=== PATIENT | male | born 1995 | race American Indian/Alaskan Native ===

== ENCOUNTER 2016-07-06 22:09 | Emergency (ER) | payer BC ==
[2016-07-06 22:58] VITALS: BP 140/79
--- NOTE | 2016-07-06 23:34 | EDM.PDOC ---
ED HPI ENT - General Chief Complaint: ENT Problem Stated Complaint: FEVER,TONSILLITIS Time Seen by Provider: 07/06/16 23:34 Source of Information: Reports: Patient History Limitations: Reports: No limitations - History of Present Illness INITIAL COMMENTS - FREE TEXT/NARRATIVE: few days h/o sore throat hard to sleep - Related Data Allergies/ADRs: Allergies Allergy/AdvReac Type Severity Reaction Status Date / Time Penicillins Allergy Cannot Verified 07/06/16 22:54 Remember Home Meds: Home Meds . [No Known Home Meds] 07/06/16 [History] Past Medical History - Past Health History Medical/Surgical History: Denies Medical/Surgical History Social & Family History - Family History Family Medical History: Noncontributory - Tobacco Use Smoking Status *Q: Never Smoker - Caffeine Use Caffeine Use: Reports: Soda - Recreational Drug Use Recreational Drug Use: No ED ROS ENT - Review of Systems Review Of Systems: ROS reveals no pertinent complaints other than HPI. ED EXAM, ENT - Physical Exam Exam: See Below Exam Limited By: No limitations General Appearance: alert, WD/WN, no apparent distress, other (discomfort) Ears: hearing grossly normal Mouth/Throat: Pharyngeal erythema Head: atraumatic Neck: non-tender, full range of motion Respiratory/Chest: no respiratory distress Cardiovascular: regular rate, rhythm GI/Abdominal: soft, non tender Neurological: alert, oriented, normal cognition, normal gait, no motor/sensory deficits Psychiatric: normal affect, normal mood Skin: Warm, Dry Lymphatic: no adenopathy Course - Vital Signs Last Recorded V/S: Last Vital Signs Temp 37.1 C 07/06/16 22:55 Pulse 90 07/06/16 22:55 Resp 16 07/06/16 22:55 BP 140/79 07/06/16 22:55 Pulse Ox 98 07/06/16 22:55 - Orders/Labs/Meds Orders: Active Orders 24 hr Category Date Time Status CULTURE STREP A CONFIRMATION [] Stat Lab 07/06/16 22:58 Results STREP SCRN A RAPID W CULT CONF [] Stat Lab 07/06/16 22:58 Results Azithromycin [Zithromax] Med 07/06/16 23:38 Once 500 mg PO ONETIME ONE - Re-Assessments/Exams Free Text/Narrative Re-Assessment/Exam: 07/06/16 23:38 results discussed with Pt. Departure - Departure Time of Disposition: 23:38 Disposition: Home, Self-Care 01 Condition: good Clinical Impression: Tonsillitis Instructions: Tonsillitis, [id number] Forms: ED Department Discharge Additional Instructions: 1) avoid scratchy foods next 48 hours 2) have soups, jello, baby foods 3) take tylenol or motrin for fever 4) recheck as needed rx given: z-julieta - My Orders Last 24 Hours: My Active Orders 07/06/16 22:58 CULTURE STREP A CONFIRMATION [RM] Stat STREP SCRN A RAPID W CULT CONF [RM] Stat 07/06/16 23:38 Azithromycin [Zithromax] 500 mg PO ONETIME ONE - Assessment/Plan Last 24 Hours: My Active Orders 07/06/16 22:58 CULTURE STREP A CONFIRMATION [RM] Stat STREP SCRN A RAPID W CULT CONF [RM] Stat 07/06/16 23:38 Azithromycin [Zithromax] 500 mg PO ONETIME ONE
[2016-07-06] MEDS ORDERED: Azithromycin 250 MG Tab PO ONE (23:38)
== END 2016-07-06 23:46 | disposition home or self-care (01) ==
LOC: DL.ED 22:09
DX: J03.90 Acute tonsillitis, unspecified (principal); Z88.0 Allergy status to penicillin
CPT/HCPCS: 87081; 87430; 99283; A9270

== ENCOUNTER 2016-08-14 11:04 | Emergency (ER) | payer BC ==
[2016-08-14 11:16] VITALS: BP 134/91
[2016-08-14] MEDS ORDERED: predniSONE 20 MG Tab PO ONE (11:25)
--- NOTE | 2016-08-14 11:34 | EDM.PDOC ---
ED HPI GENERAL MEDICAL PROBLEM - General Chief Complaint: Allergic Reaction Stated Complaint: [id number] ALLERGIC REACTION Time Seen by Provider: 08/14/16 11:29 Source of Information: Reports: Patient History Limitations: Reports: No Limitations - History of Present Illness INITIAL COMMENTS - FREE TEXT/NARRATIVE: states his girlfriend cooked crab and he thinks he is allergic b/c he developed red area on the right side of the neck, right lateral abd and right elbow. The areas are tender red and swollen. does not report any trauma Onset: Gradual Location: Reports: Neck Quality: Reports: Burning Severity: Mild Improves with: Reports: None Worsens with: Reports: None Associated Symptoms: Reports: No Other Symptoms Treatments ST[employer] SAW[employer]ER: Denies: Acetaminophen - Related Data Allergies Allergy/AdvReac Type Severity Reaction Status Date / Time Penicillins Allergy Cannot Verified 08/14/16 11:07 Remember Home Meds: Home Meds . [No Known Home Meds] 07/06/16 [History] Past Medical History - Past Health History Medical/Surgical History: Denies Medical/Surgical History Cardiovascular History: Reports: Heart Murmur Social & Family History - Family History Family Medical History: Noncontributory - Tobacco Use Smoking Status *Q: Never Smoker Second Hand Smoke Exposure: No - Caffeine Use Caffeine Use: Reports: None - Recreational Drug Use Recreational Drug Use: No ED ROS ALLERGIC REACTION - Review of Systems Review Of Systems: See Below Musculoskeletal: Reports: No Symptoms Skin: Reports: Erythema Neurological: Reports: No Symptoms ED EXAM GENERAL NO PERIP PULSE - Physical Exam Exam: See Below Exam Limited By: No Limitations General Appearance: Alert, WD/WN, No Apparent Distress Eye Exam: Bilateral Eye: PERRL Ears: Normal External Exam, Normal Canal, Hearing Grossly Normal, Normal TMs Nose: Normal Inspection, Normal Mucosa, No Blood Throat/Mouth: Normal Inspection, Normal Lips, Normal Teeth, Normal Gums, Normal Oropharynx, Normal Voice, No Airway Compromise Head: Atraumatic, Normocephalic Neck: Normal Inspection, Supple, Non-Tender, Full Range of Motion Respiratory/Chest: No Respiratory Distress, Lungs Clear, Normal Breath Sounds, No Accessory Muscle Use, Chest Non-Tender Cardiovascular: Normal Peripheral Pulses, Regular Rate, Rhythm, No Edema, No Gallop, No JVD, No Murmur, No Rub Extremities: Normal Inspection, Normal Range of Motion, Non-Tender, Normal Capillary Refill, No Pedal Edema Neurological: Alert, Oriented, CN II-XII Intact, Normal Cognition, Normal Gait, Normal Reflexes, No Motor/Sensory Deficits Psychiatric: Normal Affect, Normal Mood Skin Exam: Warm, Dry, Intact, Erythema (area to the right posterior neck / right elbow and right mid lateral abd that are red/ warm and varing in size- ), Increased Warmth Course - Vital Signs Last Recorded V/S: Last Vital Signs Temp 96.6 F 08/14/16 11:15 Pulse 74 08/14/16 11:15 Resp 18 08/14/16 11:15 BP 134/91 H 08/14/16 11:15 Pulse Ox 96 08/14/16 11:15 - Orders/Labs/Meds Meds: Medications Discontinued Medications Generic Name Dose Route Start Last Admin Trade Name Jessica PRN Reason Stop Dose Admin Cephalexin 500 mg 08/14/16 11:43 08/14/16 11:56 Keflex PO 08/14/16 11:44 500 mg ONETIME ONE Administration Cephalexin Confirm 08/14/16 11:52 08/14/16 11:56 Keflex Administered 08/14/16 11:53 Not Given Dose 1,500 mg .ROUTE .STK-MED ONE Prednisone 20 mg 08/14/16 11:25 08/14/16 11:36 Prednisone PO 08/14/16 11:26 20 mg ONETIME ONE Administration - Re-Assessments/Exams Free Text/Narrative Re-Assessment/Exam: 08/14/16 11:38 Patient given predisone and keflex and then told to f/u Departure - Departure Time of Disposition: 11:39 Disposition: Home, Self-Care 01 Condition: good Clinical Impression: Cellulitis Qualifiers: Site of cellulitis: neck Qualified Code(s): L03.221 - Cellulitis of neck Allergic reaction Qualifiers: Encounter type: initial encounter Qualified Code(s): T78.40XA - Allergy, unspecified, initial encounter - Discharge Information Instructions: Food Allergy, Cellulitis, Adult, [id number] Referrals: PCP,None [Primary Care Provider] - Forms: ED Department Discharge
[2016-08-14] MEDS ORDERED: Cephalexin 500 MG Cap PO ONE ×2 (11:43→11:52)
[2016-08-14] MEDS ORDERED: Cephalexin 500 MG Cap ONE (11:52)
== END 2016-08-14 11:50 | disposition home or self-care (01) ==
LOC: DL.ED 11:04
DX: L03.221 Cellulitis of neck (principal); T78.40XA Allergy, unspecified, initial encounter; Z88.0 Allergy status to penicillin
CPT/HCPCS: 99283; A9270

== ENCOUNTER 2016-08-22 17:42 | Emergency (ER) | payer BC ==
[2016-08-22 17:55] VITALS: BP 126/71
--- NOTE | 2016-08-22 19:23 | EDM.PDOC ---
ED HPI GENERAL MEDICAL PROBLEM - General Chief Complaint: ENT Problem Stated Complaint: THROAT PAINS, [id number] Time Seen by Provider: 08/22/16 19:10 Source of Information: Reports: Patient History Limitations: Reports: No Limitations - History of Present Illness INITIAL COMMENTS - FREE TEXT/NARRATIVE: This 20 yo male patient reports to the ED with a 1 day history of a sore throat. The patient also reports his right ear has been hurting and his left ear feels "plugged". The patient has not been seen in the clinic. Onset: Sudden Onset Date: 08/21/16 Duration: Constant Location: Reports: Head, Neck Quality: Reports: Ache, Dull Severity: Moderate Improves with: Reports: None Worsens with: Reports: None Associated Symptoms: Reports: No Other Symptoms Throat Pain Score (Numeric/FACES): 9 - Related Data Allergies Allergy/AdvReac Type Severity Reaction Status Date / Time Penicillins Allergy Cannot Verified 08/22/16 17:51 Remember Home Meds: Home Meds . [No Known Home Meds] 07/06/16 [History] Past Medical History - Past Health History Medical/Surgical History: Denies Medical/Surgical History Cardiovascular History: Reports: Heart Murmur Social & Family History - Family History Family Medical History: Noncontributory - Tobacco Use Smoking Status *Q: Never Smoker Second Hand Smoke Exposure: No - Caffeine Use Caffeine Use: Reports: None - Recreational Drug Use Recreational Drug Use: No ED ROS ENT - Review of Systems Review Of Systems: ROS reveals no pertinent complaints other than HPI. ED EXAM, ENT - Physical Exam Exam: See Below Exam Limited By: No Limitations General Appearance: Alert, WD/WN, Moderate Distress Eye Exam: Bilateral Eye: EOMI, Normal Inspection, PERRL Ears: TM Bulging (left), TM Erythema (left) Nose: Normal Inspection, Normal Mucousa, No Blood Mouth/Throat: Normal Gums, Normal Lips, Normal Teeth, Tonsillar Erythema, Tonsillar Exudates Head: Atraumatic, Normocephalic Neck: Normal Inspection, Supple, Non-Tender, Full Range of Motion. No: Lymphadenopathy (L), Lymphadenopathy (R) Respiratory/Chest: No Respiratory Distress, Lungs Clear, Normal Breath Sounds, No Accessory Muscle Use, Chest Non-Tender Cardiovascular: Normal Peripheral Pulses, Regular Rate, Rhythm, No Edema, No Gallop, No JVD, No Murmur, No Rub GI/Abdominal: Normal Bowel Sounds, Soft, Non-Tender, No Organomegaly, No Distention, No Abnormal Bruit, No Mass (Male) Exam: Deferred Rectal (Males) Exam: Deferred Back: Normal Inspection, Full Range of Motion Extremities: Normal Inspection, Normal Range of Motion, Non-Tender, No Pedal Edema, Normal Capillary Refill Neurological: Alert, Oriented, CN II-XII Intact, Normal Cognition, Normal Gait, Normal Reflexes, No Motor/Sensory Deficits Psychiatric: Normal Affect, Normal Mood Skin: Warm, Dry, Intact, Normal Color, No Rash Lymphatic: No Adenopathy Course - Vital Signs Last Recorded V/S: Last Vital Signs Temp 36.4 C 08/22/16 17:53 Pulse 100 08/22/16 17:53 Resp 18 08/22/16 17:53 BP 126/71 08/22/16 17:53 Pulse Ox 100 08/22/16 17:53 - Orders/Labs/Meds Orders: Active Orders 24 hr Category Date Time Status CULTURE STREP A CONFIRMATION [] Stat Lab 08/22/16 17:55 Results STREP SCRN A RAPID W CULT CONF [RM] Stat Lab 08/22/16 17:55 Results Departure - Departure Time of Disposition: 19:20 Disposition: Home, Self-Care 01 Condition: fair Clinical Impression: Otitis media Qualifiers: Otitis media type: serous Chronicity: acute Laterality: left Recurrence: not specified as recurrent Qualified Code(s): H65.02 - Acute serous otitis media, left ear Pharyngitis Qualifiers: Pharyngitis/tonsillitis etiology: unspecified etiology Qualified Code(s): J02.9 - Acute pharyngitis, unspecified - Discharge Information Instructions: Pharyngitis, Otitis Media, Adult Forms: ED Department Discharge Care Plan Goals: The patient was advised of the examination and lab results during the visit. The patient was discharged with a script for Keflex (500 mg) to take 1 by mouth 2 times per day for 10 days. If the patient has any additional symptoms or concerns, the patient should follow-up with his primary care facility or return to the emergency department.
== END 2016-08-22 19:27 | disposition home or self-care (01) ==
LOC: DL.ED 17:42
DX: H65.02 Acute serous otitis media, left ear (principal); J02.9 Acute pharyngitis, unspecified; Z88.0 Allergy status to penicillin
CPT/HCPCS: 87081; 87430; 99283

== ENCOUNTER 2016-08-26 21:07 | Emergency (ER) | payer BC ==
[2016-08-26 21:15] VITALS: BP 135/77
--- NOTE | 2016-08-26 21:32 | EDM.PDOC ---
ED HPI GENERAL MEDICAL PROBLEM - General Chief Complaint: ENT Problem Stated Complaint: THROAT AND EAR, [id number] Time Seen by Provider: 08/26/16 21:21 Source of Information: Reports: Patient History Limitations: Reports: No Limitations - History of Present Illness INITIAL COMMENTS - FREE TEXT/NARRATIVE: This 20 yo male patient reports to the ED with continued pain in his throat and plugged ears. The patient was seen in the ED 4 days ago for similar symptoms and started on Keflex. The patient's mother reports the patient has had fevers of up to 104. The patient has been taking the Keflex as prescribed along with Tylenol and ibuprofen. The patient did not get into the clinic to be seen as the clinic could not get him in until Sunday. The patient mother reports he has not been feeling well since . The patient was started on Keflex around also. Onset: Gradual Onset Date: 08/21/16 Duration: Constant, Getting Worse Location: Reports: Face, Neck Quality: Reports: Ache, Sharp Severity: Severe Improves with: Reports: Medication Worsens with: Reports: None Associated Symptoms: Reports: No Other Symptoms Treatments [employer]BER: Reports: Acetaminophen, NSAIDS, Other Medication(s) Bilateral Ear Pain Score (Numeric/FACES): 5 Throat Pain Score (Numeric/FACES): 8 - Related Data Allergies Allergy/AdvReac Type Severity Reaction Status Date / Time Penicillins Allergy Cannot Verified 08/26/16 21:20 Remember Home Meds: Home Meds Cephalexin [Keflex] 1 tab PO BID 08/26/16 [History] Past Medical History - Past Health History Medical/Surgical History: Denies Medical/Surgical History Cardiovascular History: Reports: Heart Murmur Social & Family History - Family History Family Medical History: Noncontributory - Tobacco Use Smoking Status *Q: Never Smoker Second Hand Smoke Exposure: No - Caffeine Use Caffeine Use: Reports: None - Recreational Drug Use Recreational Drug Use: No ED ROS ENT - Review of Systems Review Of Systems: ROS reveals no pertinent complaints other than HPI. ED EXAM, ENT - Physical Exam Exam: See Below Exam Limited By: No Limitations General Appearance: Alert, WD/WN, Moderate Distress Eye Exam: Bilateral Eye: EOMI, Normal Inspection, PERRL Ears: Normal External Exam, Normal Canal, Hearing Grossly Normal, Normal TMs Nose: Normal Inspection, Normal Mucousa, No Blood Mouth/Throat: Normal Inspection, Normal Gums, Normal Lips, Normal Teeth, Tonsillar Exudates, Tonsillar Swelling Head: Atraumatic, Normocephalic Neck: Full Range of Motion, Lymphadenopathy (L), Lymphadenopathy (R), Tender Lateral Respiratory/Chest: No Respiratory Distress, Lungs Clear, Normal Breath Sounds, No Accessory Muscle Use, Chest Non-Tender Cardiovascular: Normal Peripheral Pulses, Regular Rate, Rhythm, No Edema, No Gallop, No JVD, No Murmur, No Rub GI/Abdominal: Normal Bowel Sounds, Soft, Non-Tender, No Organomegaly, No Distention, No Abnormal Bruit, No Mass (Male) Exam: Deferred Rectal (Males) Exam: Deferred Back: Normal Inspection, Full Range of Motion Extremities: Normal Inspection, Normal Range of Motion, Non-Tender, No Pedal Edema, Normal Capillary Refill Neurological: Alert, Oriented, CN II-XII Intact, Normal Cognition, Normal Gait, Normal Reflexes, No Motor/Sensory Deficits Psychiatric: Normal Affect, Normal Mood Skin: Warm, Dry, Intact, Normal Color, No Rash Lymphatic: No Adenopathy Course - Vital Signs Last Recorded V/S: Last Vital Signs Temp 37.4 C 08/26/16 21:14 Pulse 113 H 08/26/16 21:14 Resp 20 08/26/16 21:14 BP 135/77 08/26/16 21:14 Pulse Ox 97 08/26/16 21:14 - Orders/Labs/Meds Labs: Laboratory Tests 08/26/16 08/26/16 Range/Units 21:40 21:40 WBC 13.4 H (5.0-10.0) 10^3/uL RBC 4.49 L (4.6-6.2) 10^6/uL Hgb 13.6 L (14.0-18.0) g/dL Hct 39.1 L (40.0-54.0) % MCV 87.1 (80-100) fL MCH 30.3 (27.0-34.0) pg MCHC 34.8 (33.0-35.0) g/dL Plt Count 238 (150-450) 10^3/uL Neut % (Auto) 71.9 (42.2-75.2) % Lymph % (Auto) 13.1 L (20.5-50.1) % [place] % (Auto) 14.5 H (2-8) % Eos % (Auto) 0.4 L (1.0-3.0) % Baso % (Auto) 0.1 (0.0-1.0) % Monoscreen Negative Meds: Medications Discontinued Medications Generic Name Dose Route Start Last Admin Trade Name Jessica PRN Reason Stop Dose Admin Ibuprofen 800 mg 08/26/16 22:10 Motrin PO 08/26/16 22:11 ONETIME ONE Methylprednisolone Sodium Succinate 125 mg 08/26/16 22:10 Solu-Medrol IM 08/26/16 22:11 ONETIME ONE Departure - Departure Time of Disposition: 22:12 Disposition: Home, Self-Care 01 Condition: fair Clinical Impression: Pharyngitis Qualifiers: Pharyngitis/tonsillitis etiology: unspecified etiology Qualified Code(s): J02.9 - Acute pharyngitis, unspecified - Discharge Information Instructions: Pharyngitis, Vdxu-[id number] Forms: ED Department Discharge Care Plan Goals: The patient and his mother were advised of the examination and lab results during the visit. The patient was given an injection of SoluMedrol (125 mg) and an oral dose of ibuprofen (800 mg) while in the ED. The patient was discharged with a script for Prednisone (20 mg) #10 to take 2 by mouth daily for 5 days. The patient should follow-up with his primary care facility for a possible ENT referral. If the patient has any additional symptoms or concerns, the patient should visit his primary care facility or return to the emergency department.
[2016-08-26] MEDS ORDERED: methylPREDNISolone Sodium Succinate 125 MG/2 ML SDV IM ONE (22:10)
[2016-08-26] MEDS ORDERED: Ibuprofen 800 MG Tab PO ONE (22:10)
== END 2016-08-26 22:24 | disposition home or self-care (01) ==
LOC: DL.ED 21:07
DX: J02.9 Acute pharyngitis, unspecified (principal); Z88.1 Allergy status to other antibiotic agents
CPT/HCPCS: 36415; 85025; 86308; 96372; 99283; A9270; J2930

== ENCOUNTER 2016-10-22 13:45 | Emergency (ER) | payer BC ==
[2016-10-22 13:52] VITALS: BP 139/84
[2016-10-22] MEDS ORDERED: Sodium Chloride 0.9% 10 ML Syringe FLUSH PRN (14:02)
[2016-10-22] MEDS ORDERED: cefTRIAXone 2 GM in Sodium Chloride 0.9% 100 ML IV ONE (14:03)
[2016-10-22] MEDS ORDERED: Dexamethasone 4 MG/ML SDV IVPUSH ONE (14:03)
[2016-10-22] MEDS ORDERED: Sodium Chloride 0.9% 1,000 ML IV ONE (14:03)
--- NOTE | 2016-10-22 14:58 | EDM.PDOC ---
Scribed by Radha Bravo 10/22/16 [id number] for Harmeet Barrientos MD ED HPI GENERAL MEDICAL PROBLEM - General Chief Complaint: ENT Problem Stated Complaint: [id number] TONSILS SWELLING Time Seen by Provider: 10/22/16 13:48 Source of Information: Reports: Patient, RN, RN Notes Reviewed History Limitations: Reports: No Limitations - History of Present Illness INITIAL COMMENTS - FREE TEXT/NARRATIVE: Patient complaining of sore throat x3 days. [place] feverish but didn't measure temperature. Mild frontal headache and nausea. Denies cough or rash. Location: Reports: Other (throat) Quality: Reports: Ache Severity: Severe Improves with: Reports: None Worsens with: Reports: None Associated Symptoms: Reports: No Other Symptoms Throat Pain Score (Numeric/FACES): 8 - Related Data Allergies Allergy/AdvReac Type Severity Reaction Status Date / Time Penicillins Allergy Cannot Verified 10/22/16 13:49 Remember Home Meds: Home Meds . [No Known Home Meds] 10/22/16 [History] Past Medical History - Past Health History Medical/Surgical History: Denies Medical/Surgical History HEENT History: Reports: Other (See Below) (recurrent strep throat) Cardiovascular History: Reports: Heart Murmur Social & Family History - Family History Family Medical History: Noncontributory - Tobacco Use Smoking Status *Q: Never Smoker Second Hand Smoke Exposure: No - Caffeine Use Caffeine Use: Reports: None - Recreational Drug Use Recreational Drug Use: No ED ROS ENT - Review of Systems Review Of Systems: ROS reveals no pertinent complaints other than HPI. ED EXAM, ENT - Physical Exam Exam: See Below Exam Limited By: No Limitations General Appearance: Alert, WD/WN, No Apparent Distress Eye Exam: Bilateral Eye: Normal Inspection Ears: Normal External Exam, Normal Canal, Hearing Grossly Normal, Normal TMs Nose: Normal Inspection, Normal Mucousa, No Blood Mouth/Throat: Other (pharyngeal erythema with exudates on tonsils. Right tonsil enlarged with peritonsillar abscess.) Head: Atraumatic, Normocephalic Neck: Full Range of Motion Respiratory/Chest: No Respiratory Distress, Lungs Clear, Normal Breath Sounds, No Accessory Muscle Use, Chest Non-Tender Cardiovascular: Normal Peripheral Pulses, Regular Rate, Rhythm, No Edema, No Gallop, No JVD, No Murmur, No Rub GI/Abdominal: Normal Bowel Sounds, Soft, Non-Tender, No Organomegaly, No Distention, No Abnormal Bruit, No Mass (Male) Exam: Deferred Rectal (Males) Exam: Deferred Back: Normal Inspection, Full Range of Motion Extremities: Normal Inspection, Normal Range of Motion, Non-Tender, No Pedal Edema, Normal Capillary Refill Neurological: Alert, Oriented, CN II-XII Intact, Normal Cognition, Normal Gait, Normal Reflexes, No Motor/Sensory Deficits Psychiatric: Normal Affect, Normal Mood Skin: Warm, Dry, Intact, Normal Color, No Rash Course - Vital Signs Last Recorded V/S: Last Vital Signs Temp 37.5 C 10/22/16 13:49 Pulse 130 H 10/22/16 13:49 Resp 16 10/22/16 13:49 BP 139/84 10/22/16 13:49 Pulse Ox 96 10/22/16 13:49 - Orders/Labs/Meds Orders: Active Orders 24 hr Category Date Time Status Peripheral IV Care [RC] . DIRECTED Care 10/22/16 14:02 Active Sodium Chloride 0.9% [Normal Saline] 1,000 ml Med 10/22/16 14:03 Active IV .BOLUS Sodium Chloride 0.9% [Saline Flush] Med 10/22/16 14:02 Active 10 ml FLUSH ASDIRECTED PRN Peripheral IV Insertion Adult [OM.PC] Stat Oth 10/22/16 14:02 Ordered Medication Orders Sodium Chloride (Normal Saline) 1,000 mls @ 999 mls/hr IV .BOLUS ONE Stop: 10/22/16 15:03 Last Admin: 10/22/16 14:24 Dose: 999 mls/hr Sodium Chloride (Saline Flush) 10 ml FLUSH ASDIRECTED PRN PRN Reason: Keep Vein Open Last Admin: 10/22/16 14:24 Dose: 10 ml Labs: Laboratory Tests 10/22/16 10/22/16 Range/Units 14:08 14:08 WBC 12.5 H (5.0-10.0) 10^3/uL RBC 4.83 (4.6-6.2) 10^6/uL Hgb 14.3 (14.0-18.0) g/dL Hct 42.3 (40.0-54.0) % MCV 87.6 (80-100) fL MCH 29.6 (27.0-34.0) pg MCHC 33.8 (33.0-35.0) g/dL Plt Count 209 (150-450) 10^3/uL Neut % (Auto) 69.8 (42.2-75.2) % Lymph % (Auto) 13.1 L (20.5-50.1) % [place] % (Auto) 16.7 H (2-8) % Eos % (Auto) 0.2 L (1.0-3.0) % Baso % (Auto) 0.2 (0.0-1.0) % C-Reactive Protein 14.8 H (0.0-1.3) mg/dL Rapid strep: Positive Meds: Medications Generic Name Dose Route Start Last Admin Trade Name Freq PRN Reason Stop Dose Admin Sodium Chloride 1,000 mls @ 999 mls/hr 10/22/16 14:03 10/22/16 14:24 Normal Saline IV 10/22/16 15:03 999 mls/hr .BOLUS ONE Administration Sodium Chloride 10 ml 10/22/16 14:02 10/22/16 14:24 Saline Flush FLUSH 10 ml ASDIRECTED PRN Administration Keep Vein Open Discontinued Medications Generic Name Dose Route Start Last Admin Trade Name Freq PRN Reason Stop Dose Admin Dexamethasone 20 mg 10/22/16 14:03 10/22/16 14:20 Dexamethasone IVPUSH 10/22/16 14:04 20 mg ONETIME ONE Administration Ceftriaxone Sodium 2 gm/ 100 mls @ 200 mls/hr 10/22/16 14:03 10/22/16 14:43 Sodium Chloride IV 10/22/16 14:32 200 mls/hr ONETIME ONE Administration Departure - Departure Time of Disposition: 14:55 Disposition: Home, Self-Care 01 Condition: Fair Clinical Impression: Strep pharyngitis, Peritonsillar abscess - Discharge Information Instructions: Strep Throat, [id number], Peritonsillar Abscess, [id number] Forms: ED Department Discharge Additional Instructions: RX: Prednisone 20mg. RX: Clindamycin 300mg. Gargle with salt water frequently until improved. Follow up with ear, nose and throat specialist or your primary doctor to ENT specialist this week. Return to ER if worse at any time. - My Orders Last 24 Hours: My Active Orders 10/22/16 14:02 Peripheral IV Care [RC] . DIRECTED Sodium Chloride 0.9% [Saline Flush] 10 ml FLUSH ASDIRECTED PRN Peripheral IV Insertion Adult [OM.PC] Stat 10/22/16 14:03 Sodium Chloride 0.9% [Normal Saline] 1,000 ml IV .BOLUS - Assessment/Plan Last 24 Hours: My Active Orders 10/22/16 14:02 Peripheral IV Care [RC] . DIRECTED Sodium Chloride 0.9% [Saline Flush] 10 ml FLUSH ASDIRECTED PRN Peripheral IV Insertion Adult [OM.PC] Stat 10/22/16 14:03 Sodium Chloride 0.9% [Normal Saline] 1,000 ml IV .BOLUS I have read and agree with the documentation that has been completed regarding this visit. By signing this record, I attest that the documentation was completed in my physical presence and is an accurate record of the encounter.
== END 2016-10-22 15:45 | disposition home or self-care (01) ==
LOC: DL.ED 13:45
DX: J02.0 Streptococcal pharyngitis (principal); J36 Peritonsillar abscess; Z88.0 Allergy status to penicillin
CPT/HCPCS: 36415; 85025; 86140; 87430; 96365; 96375; 99284; J0696; J1100; J7030; J7050

== ENCOUNTER 2016-12-20 21:13 | Emergency (ER) | payer BC ==
[2016-12-20 21:29] VITALS: BP 130/70
[2016-12-20] MEDS ORDERED: Azithromycin 250 MG Tab PO ONE (22:29)
--- NOTE | 2016-12-20 22:51 | EDM.PDOC ---
ED HPI GENERAL MEDICAL PROBLEM - General Chief Complaint: ENT Problem Stated Complaint: TONSILE SWOLLEN,FEVER, [id number] Time Seen by Provider: 12/20/16 21:45 Source of Information: Reports: Patient History Limitations: Reports: No Limitations - History of Present Illness INITIAL COMMENTS - FREE TEXT/NARRATIVE: C/o sore throat and fever for past 3 days. Tonight fever 100.4. Has been taking Ibuprofen with minimal improvement. Hx recurrent strep infections. Has referral appointment with Dr. Bell on 01/03. Throat Pain Score (Numeric/FACES): 7 - Related Data Allergies Allergy/AdvReac Type Severity Reaction Status Date / Time Penicillins Allergy Cannot Verified 12/20/16 21:25 Remember shellfish derived Allergy Hives Verified 12/20/16 21:25 Home Meds: Home Meds . [No Known Home Meds] 10/22/16 [History] Past Medical History - Past Health History Medical/Surgical History: Denies Medical/Surgical History HEENT History: Reports: Other (See Below) Other HEENT History: frequent tonsillitis Cardiovascular History: Reports: Heart Murmur Social & Family History - Family History Family Medical History: Noncontributory - Tobacco Use Smoking Status *Q: Unknown Ever Smoked Second Hand Smoke Exposure: No - Caffeine Use Caffeine Use: Reports: Energy Drinks - Recreational Drug Use Recreational Drug Use: No ED ROS ENT - Review of Systems Review Of Systems: See Below Constitutional: Reports: Fever, Chills HEENT: Reports: Throat Pain. Denies: Ear Pain, Sinus Problem Respiratory: Reports: No Symptoms Cardiovascular: Reports: No Symptoms GI/Abdominal: Reports: No Symptoms Musculoskeletal: Reports: No Symptoms Skin: Reports: No Symptoms Neurological: Reports: No Symptoms ED EXAM, ENT - Physical Exam Exam: See Below Exam Limited By: No Limitations General Appearance: Alert, Mild Distress Eye Exam: Bilateral Eye: EOMI Ears: Normal External Exam Nose: Normal Inspection Mouth/Throat: Pharyngeal Erythema, Tonsillar Erythema, Tonsillar Exudates, Tonsillar Swelling Head: Atraumatic, Normocephalic Neck: Full Range of Motion, Lymphadenopathy (L), Lymphadenopathy (R) Respiratory/Chest: No Respiratory Distress, Lungs Clear, Normal Breath Sounds Cardiovascular: Normal Peripheral Pulses, Regular Rate, Rhythm GI/Abdominal: Normal Bowel Sounds, Soft, Non-Tender Neurological: Alert, Oriented, Normal Cognition Psychiatric: Normal Affect, Normal Mood Skin: Warm, Dry, Intact, Normal Color Course - Vital Signs Last Recorded V/S: Last Vital Signs Temp 99.5 F 12/20/16 21:28 Pulse 101 H 12/20/16 21:28 Resp 17 12/20/16 21:28 BP 130/70 12/20/16 21:28 Pulse Ox 100 12/20/16 21:28 - Orders/Labs/Meds Orders: Active Orders 24 hr Category Date Time Status CULTURE STREP A CONFIRMATION [RM] Stat Lab 12/20/16 21:24 Results CULTURE WOUND [RM] Stat Lab 12/20/16 22:45 Received STREP SCRN A RAPID W CULT CONF [RM] Stat Lab 12/20/16 21:24 Results Meds: Medications Discontinued Medications Generic Name Dose Route Start Last Admin Trade Name Jessica PRN Reason Stop Dose Admin Azithromycin 500 mg 12/20/16 22:29 12/20/16 22:48 Zithromax PO 12/20/16 22:30 500 mg ONETIME ONE Administration Departure - Departure Time of Disposition: 22:48 Disposition: Home, Self-Care 01 Condition: Fair Clinical Impression: Acute recurrent tonsillitis, unspecified - Discharge Information Instructions: Peritonsillar Abscess, Onco-[id number] Forms: ED Department Discharge Additional Instructions: azithromiycin 250mg one daily x 4 days alternate tylenol 650mg with ibuprofen 800mg every 4 hours as needed for pain increase fluid intake - My Orders Last 24 Hours: My Active Orders 12/20/16 21:24 CULTURE STREP A CONFIRMATION [RM] Stat STREP SCRN A RAPID W CULT CONF [RM] Stat 12/20/16 22:45 CULTURE WOUND [RM] Stat - Assessment/Plan Last 24 Hours: My Active Orders 12/20/16 21:24 CULTURE STREP A CONFIRMATION [RM] Stat STREP SCRN A RAPID W CULT CONF [RM] Stat 12/20/16 22:45 CULTURE WOUND [RM] Stat
== END 2016-12-20 22:57 | disposition home or self-care (01) ==
LOC: DL.ED 21:13
DX: J03.91 Acute recurrent tonsillitis, unspecified (principal); Z88.0 Allergy status to penicillin; Z88.8 Allergy status to other drugs, medicaments and biological substances
CPT/HCPCS: 87070; 87081; 87430; 99283; A9270; 87077; 87186

== ENCOUNTER 2017-02-22 19:21 | Emergency (ER) | payer BC ==
[2017-02-22] MEDS ORDERED: Clindamycin HCl 150 MG Cap PO ONE (20:32)
--- NOTE | 2017-02-22 20:35 | EDM.PDOC ---
ED HPI GENERAL MEDICAL PROBLEM - General Chief Complaint: ENT Problem Stated Complaint: SORE THROAT [id number] Time Seen by Provider: 02/22/17 19:40 Source of Information: Reports: Patient History Limitations: Reports: No Limitations - History of Present Illness INITIAL COMMENTS - FREE TEXT/NARRATIVE: sore throat since yesterday fever, hx frequent tonsilitis, ENT sheduled next month to have tonsils out. Tried Ibuprofen earlier today but did not help. 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 [No Known Home Meds] 10/22/16 [History] Past Medical History - Past Health History Medical/Surgical History: Denies Medical/Surgical History HEENT History: Reports: Other (See Below) Other HEENT History: frequent tonsillitis Cardiovascular History: Reports: Heart Murmur Social & Family History - Family History Family Medical History: Noncontributory - Tobacco Use Smoking Status *Q: Never Smoker Second Hand Smoke Exposure: No - Caffeine Use Caffeine Use: Reports: None - Recreational Drug Use Recreational Drug Use: No ED ROS ENT - Review of Systems Review Of Systems: See Below Constitutional: Reports: Fever HEENT: Reports: Throat Pain Respiratory: Reports: No Symptoms Cardiovascular: Reports: No Symptoms GI/Abdominal: Reports: No Symptoms Musculoskeletal: Reports: No Symptoms Skin: Reports: No Symptoms Neurological: Reports: Headache ED EXAM, ENT - Physical Exam Exam: See Below Exam Limited By: No Limitations General Appearance: Alert, No Apparent Distress Ears: Normal External Exam, Normal TMs Nose: Normal Inspection Mouth/Throat: Pharyngeal Erythema, Tonsillar Swelling. No: Tonsillar Exudates Head: Atraumatic, Normocephalic Neck: Lymphadenopathy (L), Lymphadenopathy (R) Respiratory/Chest: No Respiratory Distress, Lungs Clear Cardiovascular: Normal Peripheral Pulses, Regular Rate, Rhythm Extremities: Normal Inspection Neurological: Alert, Oriented, Normal Cognition Psychiatric: Normal Affect Skin: Warm, Dry, Intact, Normal Color Course - Vital Signs Last Recorded V/S: Last Vital Signs Temp 98.6 F 02/22/17 20:35 Pulse 105 H 02/22/17 20:40 Resp 16 02/22/17 20:40 BP 127/81 02/22/17 20:40 Pulse Ox 98 02/22/17 20:40 - Orders/Labs/Meds Orders: Active Orders 24 hr Category Date Time Status CULTURE STREP A CONFIRMATION [RM] Stat Lab 02/22/17 19:25 Results STREP SCRN A RAPID W CULT CONF [RM] Stat Lab 02/22/17 19:25 Results Meds: Medications Discontinued Medications Generic Name Dose Route Start Last Admin Trade Name Jessica PRN Reason Stop Dose Admin Clindamycin HCl 300 mg 02/22/17 20:32 02/22/17 20:39 Cleocin PO 02/22/17 20:33 300 mg ONETIME ONE Administration Departure - Departure Time of Disposition: 20:34 Disposition: Home, Self-Care 01 Condition: Good Clinical Impression: Tonsillitis - Discharge Information Forms: ED Department Discharge Additional Instructions: increase fluid alternate tylenol and ibuprofen every 4 hours as needed for discomfort clindamycin 300mg 4 times daily for one week. Clinic follow up on Sunday salt water gargles as needed - My Orders Last 24 Hours: My Active Orders 02/22/17 19:25 CULTURE STREP A CONFIRMATION [RM] Stat STREP SCRN A RAPID W CULT CONF [RM] Stat - Assessment/Plan Last 24 Hours: My Active Orders 02/22/17 19:25 CULTURE STREP A CONFIRMATION [RM] Stat STREP SCRN A RAPID W CULT CONF [RM] Stat
[2017-02-22 20:41] VITALS: BP 127/81
== END 2017-02-22 20:45 | disposition home or self-care (01) ==
LOC: DL.ED 19:21
DX: J03.90 Acute tonsillitis, unspecified (principal); Z88.0 Allergy status to penicillin; Z91.013 Allergy to seafood
CPT/HCPCS: 87081; 87430; 99282; A9270

== ENCOUNTER 2018-06-21 23:24 | Emergency (ER) | payer BC ==
--- NOTE | 2018-06-21 23:33 | EDM.PDOC ---
ED HPI GENERAL MEDICAL PROBLEM - General Chief Complaint: ENT Problem Stated Complaint: SICK [id number] Time Seen by Provider: 06/21/18 23:25 Source of Information: Reports: Patient History Limitations: Reports: No Limitations - History of Present Illness INITIAL COMMENTS - FREE TEXT/NARRATIVE: This 22 yo male patient reports to the ED with a sore throat for the past 2 days. The patient reports he has been taking ibuprofen (last dose was 1700) for temporary symptom relief. The patient reports he has been feeling hot and cold, but has not taken his temp. The patient reports he has been avoiding the clinic , but thought he better get checked because he has his child today. 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 Throat Pain Score (Numeric/FACES): 3 - Related Data Allergies Allergy/AdvReac Type Severity Reaction Status Date / Time cephalexin [From Keflex] Allergy Hives Verified 06/21/18 23:35 Penicillins Allergy Cannot Verified 06/21/18 23:35 Remember shellfish derived Allergy Hives Verified 06/21/18 23:35 Home Meds: Home Meds Ibuprofen 800 mg PO Q8HR PRN 06/21/18 [History] Past Medical History - Past Health History Medical/Surgical History: Denies Medical/Surgical History HEENT History: Reports: Other (See Below) Other HEENT History: frequent tonsillitis Cardiovascular History: Reports: Heart Murmur Social & Family History - Family History Family Medical History: Noncontributory - Caffeine Use Caffeine Use: Reports: None ED ROS ENT - Review of Systems Review Of Systems: ROS reveals no pertinent complaints other than HPI. ED EXAM, ENT - Physical Exam Exam: See Below Exam Limited By: No Limitations General Appearance: Alert, WD/WN, Mild Distress Eye Exam: Bilateral Eye: EOMI, Normal Inspection, PERRL Ears: Normal External Exam, Normal Canal, Hearing Grossly Normal, Normal TMs Nose: Normal Inspection, Normal Mucousa, No Blood Mouth/Throat: Pharyngeal Erythema Head: Atraumatic, Normocephalic Neck: Normal Inspection, Supple, Non-Tender, Full Range of Motion Respiratory/Chest: No Respiratory Distress, Lungs Clear, Normal Breath Sounds, No Accessory Muscle Use, Chest Non-Tender Cardiovascular: Normal Peripheral Pulses, Regular Rate, Rhythm, No Edema, No Gallop, No JVD, No Murmur, No Rub GI/Abdominal: Normal Bowel Sounds (Male) Exam: Deferred Rectal (Males) Exam: Deferred Back: Normal Inspection, Full Range of Motion Extremities: Normal Inspection, Normal Range of Motion, Non-Tender, No Pedal Edema, Normal Capillary Refill Neurological: Alert, Oriented, CN II-XII Intact, Normal Cognition, Normal Gait, Normal Reflexes, No Motor/Sensory Deficits Psychiatric: Normal Affect Skin: Warm, Dry, Intact, Normal Color, No Rash Lymphatic: No Adenopathy Course - Vital Signs Last Recorded V/S: Last Vital Signs Temp 36.4 C 06/21/18 23:28 Pulse 100 06/21/18 23:28 Resp 19 06/21/18 23:28 BP 131/72 06/21/18 23:28 Pulse Ox 98 06/21/18 23:28 - Orders/Labs/Meds Orders: Active Orders 24 hr Category Date Time Status STREP SCRN A RAPID W CULT CONF [RM] Stat Lab 06/21/18 23:29 Ordered Departure - Departure Time of Disposition: 23:45 Disposition: Home, Self-Care 01 Condition: Fair Clinical Impression: Sore throat - Discharge Information *PRESCRIPTION DRUG MONITORING PROGRAM REVIEWED*: Not Applicable *COPY OF PRESCRIPTION DRUG MONITORING REPORT IN PATIENT ATUL: Not Applicable Instructions: Sore Throat, [id number] Forms: ED Department Discharge Care Plan Goals: The patient was advised of the examination and lab results during the visit. The patient should be encouraged to increase their oral fluid intake over the next 48 hours. The patient may continue to use [id number] medications for temporary symptom relief. If the patient has any additional symptoms or concerns , the patient should either return to the emergency department or follow-up with his primary care facility. - My Orders Last 24 Hours: My Active Orders 06/21/18 23:29 STREP SCRN A RAPID W CULT CONF [RM] Stat - Assessment/Plan Last 24 Hours: My Active Orders 06/21/18 23:29 STREP SCRN A RAPID W CULT CONF [RM] Stat
[2018-06-21 23:34] VITALS: BP 131/72
== END 2018-06-21 23:51 | disposition home or self-care (01) ==
LOC: DL.ED 23:24
DX: J02.0 Streptococcal pharyngitis (principal); Z88.1 Allergy status to other antibiotic agents; Z91.013 Allergy to seafood
CPT/HCPCS: 87081; 87430; 99282

== ENCOUNTER 2018-08-17 20:07 | Emergency (ER) | payer BC ==
[2018-08-17 20:13] VITALS: BP 127/73
--- NOTE | 2018-08-17 20:53 | EDM.PDOC ---
ED HPI GENERAL MEDICAL PROBLEM - General Chief Complaint: Respiratory Problem Stated Complaint: BRONCHITIS/[id number] Time Seen by Provider: 08/17/18 20:47 Source of Information: Reports: Patient History Limitations: Reports: No Limitations - History of Present Illness INITIAL COMMENTS - FREE TEXT/NARRATIVE: fever , congestion and cough x 24 hours Headache Pain Score (Numeric/FACES): 8 - Related Data Allergies Allergy/AdvReac Type Severity Reaction Status Date / Time cephalexin [From Keflex] Allergy Hives Verified 08/17/18 20:18 Penicillins Allergy Cannot Verified 08/17/18 20:18 Remember shellfish derived Allergy Hives Verified 08/17/18 20:18 Home Meds: Home Meds Ibuprofen 800 mg PO Q8HR PRN 06/21/18 [History] Past Medical History - Past Health History Medical/Surgical History: Denies Medical/Surgical History HEENT History: Reports: Other (See Below) Other HEENT History: frequent tonsillitis Cardiovascular History: Reports: Heart Murmur Respiratory History: Reports: None Gastrointestinal History: Reports: None Genitourinary History: Reports: None Musculoskeletal History: Reports: None Neurological History: Reports: None Psychiatric History: Reports: None Endocrine/Metabolic History: Reports: None Hematologic History: Reports: None Immunologic History: Reports: None Oncologic (Cancer) History: Reports: None Dermatologic History: Reports: None - Infectious Disease History Infectious Disease History: Reports: None - Past Surgical History Head Surgeries/Procedures: Reports: None HEENT Surgical History: Reports: Tonsillectomy Social & Family History - Family History Family Medical History: Noncontributory - Tobacco Use Smoking Status *Q: Never Smoker - Caffeine Use Caffeine Use: Reports: Energy Drinks - Recreational Drug Use Recreational Drug Use: No ED ROS GENERAL - Review of Systems Review Of Systems: ROS reveals no pertinent complaints other than HPI. ED EXAM, GENERAL - Physical Exam Exam: See Below Exam Limited By: No Limitations General Appearance: Alert, No Apparent Distress Eye Exam: Bilateral Eye: EOMI Ears: Normal External Exam, Normal TMs Nose: Normal Inspection Throat/Mouth: Normal Inspection. No: Inflammation Head: Atraumatic, Normocephalic Neck: Normal Inspection. No: Lymphadenopathy (L), Lymphadenopathy (R) Respiratory/Chest: No Respiratory Distress, Lungs Clear, Normal Breath Sounds, Other (ocassional loose bronchial cough) Cardiovascular: Normal Peripheral Pulses, Regular Rate, Rhythm GI/Abdominal: Normal Bowel Sounds Extremities: Normal Inspection Neurological: Alert, Oriented, Normal Cognition Psychiatric: Normal Affect, Normal Mood Skin Exam: Warm, Dry, Intact, Normal Color Course - Vital Signs Last Recorded V/S: Last Vital Signs Temp 98.9 F 08/17/18 20:12 Pulse 121 H 08/17/18 20:12 Resp 18 08/17/18 20:12 BP 127/73 08/17/18 20:12 Pulse Ox 99 08/17/18 20:12 Departure - Departure Time of Disposition: 20:53 Disposition: Home, Self-Care 01 Condition: Good Clinical Impression: URI (upper respiratory infection) Qualifiers: URI type: unspecified viral URI Qualified Code(s): J06.9 - Acute upper respiratory infection, unspecified - Discharge Information *PRESCRIPTION DRUG MONITORING PROGRAM REVIEWED*: Not Applicable *COPY OF PRESCRIPTION DRUG MONITORING REPORT IN PATIENT ATUL: Not Applicable Instructions: Upper Respiratory Infection, Adult Additional Instructions: humidification over the counter, cough and cold medication alternate tylenol and ibuprofen products every 4 hours as needed for fever discomfort increase fluid intake
== END 2018-08-17 21:01 | disposition home or self-care (01) ==
LOC: DL.ED 20:07
DX: J06.9 Acute upper respiratory infection, unspecified (principal); Z88.0 Allergy status to penicillin; Z88.1 Allergy status to other antibiotic agents; Z91.013 Allergy to seafood
CPT/HCPCS: 99284

== ENCOUNTER 2023-01-28 09:57 | Emergency (ER) | payer BC ==
[2023-01-28] MEDS ORDERED: Ibuprofen 800 MG Tab PO ONE (10:29)
[2023-01-28] MEDS ORDERED: Acetaminophen 500 MG Tab PO ONE (10:29)
[2023-01-28 10:58] LABS: CORONAVIRUS COVID-19 NAA NEGATIVE (NEGATIVE); INFLUENZA A NAA NEGATIVE (NEGATIVE); INFLUENZA B NAA NEGATIVE (NEGATIVE); RESPIRATORY SYNCYTIAL VIR NAA NEGATIVE (NEGATIVE)
[2023-01-28] MEDS ORDERED: Sodium Chloride 0.9% 1,000 ML IV ONE (11:09)
[2023-01-28] MEDS ORDERED: Sodium Chloride 0.9% 10 ML Syringe FLUSH PRN (11:09)
[2023-01-28] MEDS ORDERED: Dexamethasone 4 MG/ML SDV IVPUSH ONE (11:09)
[2023-01-28 12:00] VITALS: BP 127/89; PULSE 121
== END 2023-01-28 11:58 | disposition home or self-care (01) ==
LOC: DL.ED 09:57
DX: B34.9 Viral infection, unspecified (principal); Z79.899 Other long term (current) drug therapy; Z88.0 Allergy status to penicillin; Z91.013 Allergy to seafood; Z88.1 Allergy status to other antibiotic agents; Z20.822 Contact with and (suspected) exposure to COVID-19
CPT/HCPCS: 0241U; 87081; 87430; 96374; 99283; 99283-25; A9270-GY; J1100; J3490; J7030

== ENCOUNTER 2024-05-15 21:18 | Emergency (ER) | payer BC ==
[2024-05-15 21:56] LABS: BASOPHILS PERCENT AUTO 0.3 % (0.0-1.0); HEMATOCRIT 47.4 % (40.0-54.0); HEMOGLOBIN 16.4 g/dL (14.0-18.0); LYMPHOCYTES PERCENT AUTO 18.9 % (20.5-50.1); MEAN CORPUSCULAR HGB CONC 34.6 g/dL (33.0-35.0); MEAN CORPUSCULAR VOLUME 86.7 fL (80-100); MONOCYTES PERCENT AUTO 8.3 % (2-8); NEUTROPHILS PERCENT AUTO 71.5 % (42.2-75.2); PLATELET COUNT,PLT 312 10^3/uL (150-450); RED BLOOD CELL COUNT 5.47 10^6/uL (4.6-6.2)
[2024-05-15 21:59] LABS: APPEARANCE,URINE CLEAR (CLEAR); BILIRUBIN,URINE NEGATIVE (NEGATIVE); COLOR,URINE YELLOW (YELLOW); GLUCOSE,URINE NEGATIVE (NEGATIVE); KETONES,URINE NEGATIVE (NEGATIVE); LEUKOCYTE ESTERASE,URINE NEGATIVE (NEGATIVE); NITRITE,URINE NEGATIVE (NEGATIVE); OCCULT BLOOD,URINE TRACE-LYSED (NEGATIVE); PROTEIN,URINE NEGATIVE (NEGATIVE); UROBILINOGEN,URINE 0.2 mg/dL (0.2-1.0)
[2024-05-15 22:01] LABS: AMPHETAMINES,URINE NEGATIVE (NEGATIVE); BARBITURATES,URINE NEGATIVE (NEGATIVE); BENZODIAZEPINE,URINE NEGATIVE (NEGATIVE); MDMA (ECSTASY), URINE NEGATIVE (NEGATIVE); METHADONE,URINE NEGATIVE (NEGATIVE); METHAMPHETAMINES,URINE NEGATIVE (NEGATIVE); OPIATES,URINE NEGATIVE (NEGATIVE); OXYCODONE,URINE NEGATIVE (NEGATIVE); PHENCYCLIDINE,URINE NEGATIVE (NEGATIVE); TCA,URINE NEGATIVE (NEGATIVE)
[2024-05-15 22:10] LABS: BACTERIA,URINE FEW /HPF (0-FEW/HPF); EPITHELIAL CELLS,URINE RARE /HPF (NOT SEEN); MUCUS,URINE MODERATE /LPF (NOT SEEN); RBC,URINE 0-5 /HPF (0-5); WBC,URINE 0-5 /HPF (0-5/HPF)
[2024-05-15 22:23] LABS: A/G RATIO 1.5; ALANINE AMINOTRANSFERASE,ALT 46 U/L (16-63); ALBUMIN 4.7 g/dL (3.4-5.0); ALKALINE PHOSPHATASE 127 U/L (46-116); ANION GAP 12.8 mEq/L (7-13); ASPARTATE AMNIOTRANSFERASE,AST 21 U/L (15-37); BILIRUBIN TOTAL 0.5 mg/dL (0.2-1.0); BLOOD UREA NITROGEN,BUN 10 mg/dL (7-18); BUN/CREATININE RATIO 8.9 (No establ ref range); CALCIUM 9.7 mg/dL (8.5-10.1); CARBON DIOXIDE,CO2 28 mmol/L (21-32); CHLORIDE,CL 105 mmol/L (98-107); CREATININE 1.12 mg/dL (0.70-1.30); EST CRCL DRUG DOSING (CG) 105.52 mL/min; GLUCOSE RANDOM 109 mg/dL (70-99); LIPASE 19 U/L (16-77); MAGNESIUM 2.3 mg/dL (1.8-2.4); POTASSIUM,K 3.8 mmol/L (3.5-5.1); PROTEIN TOTAL,TP 7.9 g/dL (6.4-8.2); SODIUM,NA 142 mmol/L (136-145)
[2024-05-15 22:24] LABS: ACETAMINOPHEN 0 ug/mL (10-30 (Therapeutic)); ESTIMATED GFR 92 mL/min (>=60); ETHANOL BLOOD MEDICAL < 3 mg/dL (0)
[2024-05-16 10:02] VITALS: BP 124/90
[2024-05-16 10:26] VITALS: PULSE 72
== END 2024-05-16 10:26 | disposition home or self-care (01) ==
LOC: DL.ED 21:18
DX: T43.212A Poisoning by selective serotonin and norepinephrine reuptake inhibitors, intentional self-harm, initial encounter (principal); Z88.0 Allergy status to penicillin; Z91.013 Allergy to seafood; Z88.1 Allergy status to other antibiotic agents; Z79.1 Long term (current) use of non-steroidal anti-inflammatories (NSAID); Z79.899 Other long term (current) drug therapy
CPT/HCPCS: 36415; 80053; 80143; 80179; 80305-QW; 80307; 81001; 83690; 83735; 84443; 84484; 85025; 93005; 93010; 99285